=== PATIENT | female | born 1965 | race African-American/Black ===

== ENCOUNTER 2017-09-18 09:30 | Emergency (ER) | payer MEDICARE, MEDICAID | END 2017-09-18 12:19 | disposition left against medical advice (07) | LOC: ERS 09:30 | DX: Z53.21 Procedure and treatment not carried out due to patient leaving prior to being seen by health care provider (principal) ==

== ENCOUNTER 2017-09-18 12:20 | Emergency (ER) | payer MEDICARE, MEDICAID ==
[2017-09-18 13:39] LABS: #Basophils 0.1 thou/uL (0.0-0.2); #Eosinphils 0.3 thou/uL (0.0-0.7); #Lymphocytes 1.8 thou/uL (1.20-3.40); #Monocytes 0.7 thou/uL (0.11-0.59); %Basophils 1.6 % (0.0-1.0); %Monocytes 10.4 % (0.0-10.0); Hemoglobin 11.8 g/dL (12.0-16.0); Mean Corpuscular Hemoglobin 25.5 pg (27.0-31.0); Mean Corpuscular Volume 82.1 fl (81.0-99.0); Mean Platelet Volume 8.2 fL (7.4-10.4); Platelet Count 348 thou/uL (130-400); RBC Distribution Width 13.6 % (11.5-14.5); Red Blood Cell (RBC) Count 4.63 mill/uL (4.20-5.40); White Blood Cell (WBC) Count 6.8 thou/uL (4.8-10.8)
[2017-09-18 13:56] LABS: Anion Gap 12 mmol/L (10-20); BUN (Urea Nitrogen) 33 mg/dL (9.8-20.1); Calc. Creatinine Clearance 0 mL/min (70-130); Calcium 9.7 mg/dL (7.8-10.44); Carbon Dioxide 22 mmol/L (22-29); Chloride 107 mmol/L (98-107); Estimated GFR-MDRD 43; Glucose 80 mg/dL (70-105); Potassium 5.3 mmol/L (3.5-5.1); Sodium 136 mmol/L (136-145)
== END 2017-09-18 14:24 | disposition home or self-care (01) ==
LOC: ERS 12:20
DX: L08.9 Local infection of the skin and subcutaneous tissue, unspecified (principal); E87.5 Hyperkalemia; E11.9 Type 2 diabetes mellitus without complications; I10 Essential (primary) hypertension; E78.5 Hyperlipidemia, unspecified; Z79.84 Long term (current) use of oral hypoglycemic drugs; Z79.899 Other long term (current) drug therapy
CPT/HCPCS: 36415; 80048; 85025; 99283

== ENCOUNTER 2018-05-05 13:29 | Outpatient (CLI) | payer MEDICARE, MEDICAID ==
--- NOTE | 2018-05-05 16:14 | ULT ---
RENAL ULTRASOUND: 05/05/18 HISTORY: Diabetes, proteinuria and hematuria. Real time imaging of the right and left kidneys were performed. Right kidney measures 8.4 cm and left kidney 8.9 cm in size. No signs of a cyst, mass or obstruction. The bladder region appears unremarka ble. IMPRESSION: Borderline small kidneys. No obstruction or mass. POS: [facility]
== END 2018-05-05 13:30 | disposition home or self-care (01) ==
LOC: RAD 13:29
PROVIDERS: ATTEND Internal Medicine Nephrology
DX: I12.9 Hypertensive chronic kidney disease with stage 1 through stage 4 chronic kidney disease, or unspecified chronic kidney disease (principal); E11.22 Type 2 diabetes mellitus with diabetic chronic kidney disease; N18.2 Chronic kidney disease, stage 2 (mild); R80.9 Proteinuria, unspecified; R31.9 Hematuria, unspecified; E66.9 Obesity, unspecified; M19.90 Unspecified osteoarthritis, unspecified site; J45.909 Unspecified asthma, uncomplicated; M10.9 Gout, unspecified; N27.1 Small kidney, bilateral
CPT/HCPCS: 76770

== ENCOUNTER 2018-06-29 10:30 | Outpatient (CLI) | payer MEDICARE, OTHER | END 2018-06-29 10:31 | disposition home or self-care (01) | LOC: BICMAMMO 10:30 | PROVIDERS: ATTEND Family Medicine | DX: Z12.31 Encounter for screening mammogram for malignant neoplasm of breast (principal); Z80.3 Family history of malignant neoplasm of breast | CPT/HCPCS: 77063; 77067 ==

== ENCOUNTER 2019-06-30 13:40 | Outpatient (CLI) | payer MEDICARE, OTHER ==
--- NOTE | 2019-06-30 12:00 | MMO ---
Bilateral MAMMO Bilat Screen [facility]. CLINICAL HISTORY: Patient is 54 years old and is seen for screening. The patient has the following family history of breast cancer: cousin female, malignant (generic). The patient has no personal history of cancer. VIEWS: The views performed were: bilateral craniocaudal with tomosynthesis; bilateral mediolateral oblique with tomosynthesis; and left craniocaudal. FILMS COMPARED: The present examination has been compared to prior imaging studies performed at [facility] on 05/25/2015, 06/13/2016, 06/26/2017 and 06/29/2018. This study has been interpreted with the assistance of computer-aided detection. MAMMOGRAM FINDINGS: There are scattered fibroglandular densities. There are no suspicious masses, suspicious calcifications, or new areas of architectural distortion. IMPRESSION: THERE IS NO MAMMOGRAPHIC EVIDENCE OF MALIGNANCY. A ROUTINE FOLLOW-UP MAMMOGRAM IN 1 YEAR IS RECOMMENDED. THE RESULTS OF THIS EXAM WERE SENT TO THE PATIENT. ACR BI-RADS Category 1 - Negative MAMMOGRAPHY NOTE: 1. A negative mammogram report should not delay a biopsy if a dominant of clinically suspicious mass is present. 2. Approximately 10% to 15% of breast cancers are not detected by mammography. 3. Adenosis and dense breasts may obscure an underlying neoplasm. Reported by: ANKIT ROGERS MD Electonically Signed: [id number]
== END 2019-06-30 13:41 | disposition home or self-care (01) ==
LOC: BICMAMMO 13:40
PROVIDERS: ATTEND Family Medicine
DX: Z12.31 Encounter for screening mammogram for malignant neoplasm of breast (principal); Z80.3 Family history of malignant neoplasm of breast
CPT/HCPCS: 77063; 77067

== ENCOUNTER 2020-07-03 09:10 | Outpatient (CLI) | payer MEDICARE, OTHER ==
--- NOTE | 2020-07-03 11:14 | MMO ---
Bilateral MAMMO Bilat Screen [facility]. CLINICAL HISTORY: Patient is 55 years old and is seen for screening. The patient has the following family history of breast cancer: cousin female, malignant (generic). The patient has no personal history of cancer. VIEWS: The views performed were: bilateral craniocaudal with tomosynthesis; bilateral mediolateral oblique; and bilateral mediolateral oblique with tomosynthesis. FILMS COMPARED: The present examination has been compared to prior imaging studies performed at [facility] on 06/13/2016, 06/26/2017, 06/29/2018 and 06/30/2019. This study has been interpreted with the assistance of computer-aided detection. MAMMOGRAM FINDINGS: There are scattered fibroglandular densities. There are no suspicious masses, suspicious calcifications, or new areas of architectural distortion. IMPRESSION: THERE IS NO MAMMOGRAPHIC EVIDENCE OF MALIGNANCY. A ROUTINE FOLLOW-UP MAMMOGRAM IN 1 YEAR IS RECOMMENDED. THE RESULTS OF THIS EXAM WERE SENT TO THE PATIENT. ACR BI-RADS Category 1 - Negative MAMMOGRAPHY NOTE: 1. A negative mammogram report should not delay a biopsy if a dominant of clinically suspicious mass is present. 2. Approximately 10% to 15% of breast cancers are not detected by mammography. 3. Adenosis and dense breasts may obscure an underlying neoplasm. Reported by: CHAKA WILLS MD Electonically Signed: [id number]
== END 2020-07-03 09:11 | disposition home or self-care (01) ==
LOC: BICMAMMO 09:10
PROVIDERS: ATTEND Family Medicine
DX: Z12.31 Encounter for screening mammogram for malignant neoplasm of breast (principal); Z91.89 Other specified personal risk factors, not elsewhere classified
CPT/HCPCS: 77063; 77067

== ENCOUNTER 2021-07-04 09:07 | Outpatient (CLI) | payer MEDICARE, OTHER | END 2021-07-04 09:08 | disposition home or self-care (01) | LOC: BICMAMMO 09:07 | PROVIDERS: ATTEND Family Medicine | DX: Z12.31 Encounter for screening mammogram for malignant neoplasm of breast (principal); Z80.3 Family history of malignant neoplasm of breast | CPT/HCPCS: 77063; 77067 ==

== ENCOUNTER 2021-09-03 18:28 | Emergency (ER) | payer MEDICARE, OTHER | END 2021-09-03 20:16 | disposition home or self-care (01) | LOC: ERS 18:28 | DX: M25.561 Pain in right knee (principal); M25.562 Pain in left knee; E11.9 Type 2 diabetes mellitus without complications; I10 Essential (primary) hypertension; E78.5 Hyperlipidemia, unspecified | CPT/HCPCS: 99283 ==

== ENCOUNTER 2022-09-27 08:33 | Outpatient (CLI) | payer OTHER | END 2022-09-27 08:34 | disposition home or self-care (01) | LOC: BICMAMMO 08:33 | PROVIDERS: ATTEND Family Medicine | DX: Z12.31 Encounter for screening mammogram for malignant neoplasm of breast (principal); Z13.820 Encounter for screening for osteoporosis; N95.9 Unspecified menopausal and perimenopausal disorder; N64.89 Other specified disorders of breast; M85.831 Other specified disorders of bone density and structure, right forearm; Z79.890 Hormone replacement therapy; Z80.3 Family history of malignant neoplasm of breast | CPT/HCPCS: 77063; 77067; 77080 ==

== ENCOUNTER 2022-10-18 09:26 | Outpatient (CLI) | payer OTHER | END 2022-10-18 09:27 | disposition home or self-care (01) | LOC: BICMAMMO 09:26 | PROVIDERS: ATTEND Family Medicine | DX: N64.89 Other specified disorders of breast (principal) | CPT/HCPCS: 77065; G0279 ==

== ENCOUNTER 2023-02-07 10:11 | Emergency (ER) | payer OTHER ==
[2023-02-07] MEDS ORDERED: Famotidine 20 MG TAB ONE (12:05)
[2023-02-07] MEDS ORDERED: Mag-Al 1200 mg/1200 mg/30 ML UDCUP ONE (12:05)
== END 2023-02-07 13:50 | disposition home or self-care (01) ==
LOC: ERS 10:11
DX: K21.9 Gastro-esophageal reflux disease without esophagitis (principal); R11.10 Vomiting, unspecified; I10 Essential (primary) hypertension; E78.00 Pure hypercholesterolemia, unspecified; Z79.84 Long term (current) use of oral hypoglycemic drugs
CPT/HCPCS: 99283

== ENCOUNTER 2023-02-10 12:01 | Emergency (ER) | payer OTHER ==
[2023-02-10 13:05] LABS: #Basophils 0.1 thou/uL (0.0-0.2); #Eosinphils 0.2 thou/uL (0.0-0.7); #Monocytes 0.7 thou/uL (0.11-0.59); %Basophils 0.7 % (0.0-1.0); %Eosinophils 1.5 % (0.0-10.0); %Lymphocytes 20.7 % (21.0-51.0); %Monocytes 6.5 % (0.0-10.0); %Neutrophils 70.1 % (42.0-75.0); Hemoglobin 12.8 g/dL (12.0-16.0); Mean Corpuscular HGB CONC 31.9 g/dL (32.0-36.0); Mean Corpuscular Hemoglobin 26.6 pg (27.0-31.0); Mean Corpuscular Volume 83.4 fl (78.0-98.0); Mean Platelet Volume 9.9 fL (7.4-10.4); Platelet Count 430 10x3/uL (130-400); RBC Distribution Width 15.7 % (11.5-14.5); Red Blood Cell (RBC) Count 4.81 mill/uL (4.20-5.40); White Blood Cell (WBC) Count 9.9 10x3/uL (4.8-10.8)
[2023-02-10 13:37] LABS: ALT (SGPT) 8 U/L (8-55); AST (SGOT) 12 U/L (5-34); Albumin 4.3 g/dL (3.5-5.0); Alkaline Phosphatase 97 U/L (40-110); Anion Gap 18 mmol/L (10-20); BUN (Urea Nitrogen) 33 mg/dL (9.8-20.1); Bilirubin, Total 0.4 mg/dL (0.2-1.2); Calc. Creatinine Clearance 0 mL/min (70-130); Calcium 10.4 mg/dL (7.8-10.44); Carbon Dioxide 25 mmol/L (22-29); Chloride 102 mmol/L (98-107); Estimated GFR 22; Globulin 4.4 g/dL (2.4-3.5); Glucose 102 mg/dL (70-105); Lipase 5 U/L (8-78); Potassium 4.7 mmol/L (3.5-5.1); Protein, Total 8.7 g/dL (6.0-8.3); Sodium 140 mmol/L (136-145)
== END 2023-02-10 14:34 | disposition home or self-care (01) ==
LOC: ERS 12:01
DX: N28.9 Disorder of kidney and ureter, unspecified (principal); J02.9 Acute pharyngitis, unspecified; E11.9 Type 2 diabetes mellitus without complications; I10 Essential (primary) hypertension
CPT/HCPCS: 36415; 80053; 83690; 85025; 99284

== ENCOUNTER 2023-10-09 09:13 | Outpatient (CLI) | payer OTHER, MEDICAID | END 2023-10-09 09:14 | disposition home or self-care (01) | LOC: BICMAMMO 09:13 | PROVIDERS: ATTEND Family Medicine | DX: Z12.31 Encounter for screening mammogram for malignant neoplasm of breast (principal); Z80.3 Family history of malignant neoplasm of breast | CPT/HCPCS: 77063; 77067 ==

== ENCOUNTER 2025-01-25 13:04 | Outpatient (CLI) | payer OTHER | END 2025-01-25 13:05 | disposition home or self-care (01) | LOC: BICRAD 13:04 | PROVIDERS: ATTEND Family Medicine | DX: J45.909 Unspecified asthma, uncomplicated (principal); J18.9 Pneumonia, unspecified organism; R05.9 Cough, unspecified | CPT/HCPCS: 71046 ==